=== PATIENT | female | born 1945 | race Caucasian/White ===

== ENCOUNTER 2017-09-05 17:18 | Inpatient (IN) | payer MEDICARE ==
[~2017-09-05] VITALS: Ht 167.6 cm; Wt 59.7 kg
[2017-09-05] MEDS ORDERED: aspirin 81mg tab.chew PO ONE (17:30)
[2017-09-05 17:50] LABS: BASOPHILS % (AUTO) 0.3 % (0-1); EOSINOPHILS # (AUTO) 0.1 X10'3 (0-0.9); EOSINOPHILS % (AUTO) 1.8 % (0-6); HEMATOCRIT 38.2 % (35.0-45.0); HEMOGLOBIN 13.5 g/dl (12.0-16.0); LYMPHOCYTES # (AUTO) 2.3 X10'3 (1.1-4.8); LYMPHOCYTES % (AUTO) 30.9 % (21-51); MEAN CORPUSCULAR HEMOGLOBIN 32.3 PG (27.0-31.0); MEAN CORPUSCULAR HGB CONC 35.3 % (33.0-36.5); MEAN CORPUSCULAR VOLUME 91.6 FL (78-98); MEAN PLATELET VOLUME 8.2 FL (7.4-10.4); MONOCYTES # (AUTO) 0.6 X10'3 (0-0.9); MONOCYTES % (AUTO) 7.8 % (2-12); NEUTROPHILS # (AUTO) 4.5 X10'3 (1.8-7.7); NEUTROPHILS % (AUTO) 59.2 % (42-75); PLATELET COUNT 194 X10'3 (140-440); RED BLOOD COUNT 4.17 X10'6 (4.20-5.60); RED CELL DISTRIBUTION WIDTH 12.8 % (11.5-14.5); WHITE BLOOD COUNT 7.6 X10'3 (4.5-11.0)
[2017-09-05 17:58] LABS: PARTIAL THROMBOPLASTIN TIME 26 SECONDS (22-32); PROTHROMBIN TIME 10.7 SECONDS (9.0-12.0)
[2017-09-05 18:03] LABS: ALANINE AMINOTRANSFERASE 30 U/L (12-78); ALBUMIN 4.2 G/DL (3.4-5.0); ALBUMIN/GLOBULIN RATIO 1.2 (1.1-1.5); ALKALINE PHOSPHATASE 65 IU/L (46-116); ANION GAP 10 (8-16); ASPARTATE AMINO TRANSFERASE 24 U/L (10-37); BILIRUBIN,TOTAL 0.5 MG/DL (0.1-1.0); BLOOD UREA NITROGEN 19 MG/DL (7-18); BUN/CREATININE RATIO 23.2 (6.6-38.0); CALCIUM 9.6 MG/DL (8.5-10.1); CHLORIDE 105 MMOL/L (99-107); CREATININE 0.82 MG/DL (0.40-0.90); GLUCOSE 105 MG/DL (70-104); POTASSIUM 3.9 MMOL/L (3.5-5.1); SODIUM 143 MMOL/L (135-145); TOTAL CARBON DIOXIDE 27.7 MMOL/L (24-32); TOTAL PROTEIN 7.8 G/DL (6.4-8.2); eGFR 69 ML/MIN
[2017-09-05] MEDS ORDERED: acetaminophen 325mg tablet PO PRN (19:45)
[2017-09-05] MEDS ORDERED: magnesium hydroxide 30ml (MOM) UD suspension PO PRN (19:45)
[2017-09-05] MEDS ORDERED: ondansetron/PF 4mg/2ml inj IV PRN (19:45)
[2017-09-05] MEDS ORDERED: mag hydrox/Alum hydrox/simeth 30ml oral suspension PO PRN (19:45)
[2017-09-05] MEDS: heparin, porcine 5000 units/ml vial SQ SCH (20:06)
[2017-09-05 20:31] LABS: HEMOGLOBIN A1C 6.4 % (4.5-6.2)
[2017-09-05 23:45] VITALS: BP 146/66
[2017-09-06 02:00] VITALS: BP 144/57
[2017-09-06 06:14] LABS: ALANINE AMINOTRANSFERASE 24 U/L (12-78); ALBUMIN 3.3 G/DL (3.4-5.0); ALBUMIN/GLOBULIN RATIO 1.1 (1.1-1.5); ALKALINE PHOSPHATASE 56 IU/L (46-116); ANION GAP 7 (8-16); ASPARTATE AMINO TRANSFERASE 21 U/L (10-37); BILIRUBIN,TOTAL 0.8 MG/DL (0.1-1.0); BLOOD UREA NITROGEN 18 MG/DL (7-18); BUN/CREATININE RATIO 30.5 (6.6-38.0); CALCIUM 8.6 MG/DL (8.5-10.1); CHLORIDE 107 MMOL/L (99-107); CREATININE 0.59 MG/DL (0.40-0.90); GLUCOSE 111 MG/DL (70-104); POTASSIUM 3.6 MMOL/L (3.5-5.1); SODIUM 143 MMOL/L (135-145); TOTAL PROTEIN 6.4 G/DL (6.4-8.2); eGFR > 90 ML/MIN
[2017-09-06 06:17] LABS: CHOL/HDL RATIO 3.1 (0.00-4.99); CHOLESTEROL 173 MG/DL (0-200); HDL CHOLESTEROL 55 MG/DL (35-60); LDL CHOLESTEROL 110 MG/DL (50-100); TRIGLYCERIDES 47 MG/DL (20-135)
[2017-09-06 06:57] VITALS: BP 105/44
[2017-09-06] MEDS ORDERED: metoprolol tartrate 1mg/ml inj IV PRN (08:15)
[2017-09-06] MEDS ORDERED: nitroGLYCERIN 0.4mg SUBLingual tab SL PRN (08:15)
[2017-09-06] MEDS ORDERED: CAFFEINE CITRATE 60 MG/3 ML injection vial IV PRN (08:15)
[2017-09-06] MEDS ORDERED: regadenoson 0.4mg/5ml syringe IV ONE (08:15)
[2017-09-06] MEDS ORDERED: NO HOME MEDS (08:29)
[2017-09-06] MEDS: heparin, porcine 5000 units/ml vial SQ SCH (10:24)
[2017-09-06] MEDS ORDERED: NITR0.4T51 SL (10:43)
[2017-09-06] MEDS ORDERED: ASPI-1265 PO (10:43)
[2017-09-06] MEDS ORDERED: METO25TA6 PO (10:46)
[2017-09-07] MEDS ORDERED: aspirin 81mg tab.chew PO SCH (08:30)
== END 2017-09-06 14:00 | disposition home or self-care (01) | DRG 313 ==
LOC: ER 17:19 → EDBD 17:19 → ED HOLD 19:45 → EDBEDREQ 22:01 → PCU 3S 23:37
PROVIDERS: ADMIT Internal Medicine; ATTEND Internal Medicine
DX: R07.9 Chest pain, unspecified (principal); I24.9 Acute ischemic heart disease, unspecified; E11.9 Type 2 diabetes mellitus without complications; Z82.49 Family history of ischemic heart disease and other diseases of the circulatory system
CPT/HCPCS: 36415; 71045; 80053; 80061; 83036; 84484; 85025; 85610; 85730; 87070; 93306; 99285; J1644